=== PATIENT | female | born 1980 | race Caucasian/White ===

== ENCOUNTER 2017-11-21 22:16 | Emergency (ER) | payer MEDICAID ==
[2017-11-21 22:40] VITALS: BP 118/82
[2017-11-22] MEDS ORDERED: IBUPROFEN 600 MG TABLET PO ONE (00:52)
[2017-11-22] MEDS ORDERED: TRAMADOL HCL 50 MG TABLET PO ONE (00:52)
[2017-11-22] MEDS ORDERED: ACETAMINOPHEN 325 MG TABLET PO ONE (00:52)
--- NOTE | 2017-11-22 00:55 | ER Document Report ---
ED General - General Chief Complaint: Toe Injury Stated Complaint: FOOT INJURY Time Seen by Provider: 11/21/17 23:13 Notes: Patient is a 37-year-old female who presents after actually striking her left fifth toe on an ottoman just prior to arrival. She states that immediately after hitting it she developed a severe, throbbing, constant pain to the toe that has been ongoing since that time. She has not tried anything for relief of the pain. Walking or touching the area worsens the pain. No history of similar injury in the past. She has not seen her general doctor regarding today 's concerns. TRAVEL OUTSIDE OF THE [place] IN LAST 30 DAYS: No - Related Data Allergies/Adverse Reactions: No Known Allergies Allergy (Verified 11/22/17 01:13) Past Medical History - General Information source: Patient - Social History Smoking Status: Current Every Day Smoker Chew tobacco use (# tins/day): No Frequency of alcohol use: None Drug Abuse: None Lives with: Spouse/Significant other Family History: Reviewed & Not Pertinent Patient has suicidal ideation: No Patient has homicidal ideation: No Renal/ Medical History: Denies: Hx Peritoneal Dialysis Psychiatric Medical History: Reports: Hx Depression Past Surgical History: Reports: Hx Section - x2, Hx Tubal Ligation Review of Systems - Review of Systems Notes: Constitutional: Negative for fever. Eyes: Negative for visual changes. ENT: Negative for facial injury Cardiovascular: Negative for chest injury. Respiratory: Negative for shortness of breath. Gastrointestinal: Negative for abdominal injury. Genitourinary: Negative for genital injury Musculoskeletal: Positive for left fifth toe injury Skin: Negative for laceration/abrasions. Neurological: Negative for head injury. Physical Exam - Vital signs Vitals: Temp Pulse Resp BP Pulse Ox 98.7 F 79 16 118/82 98 11/21/17 22:39 11/21/17 22:39 11/21/17 22:39 11/21/17 22:39 11/21/17 22:39 Interpretation: Normal Notes: PHYSICAL EXAMINATION: GENERAL: Well-appearing, well-nourished and in no acute distress. HEAD: Atraumatic, normocephalic. EYES: sclera anicteric, conjunctiva are normal. ENT: Moist mucous membranes. NECK: Normal range of motion LUNGS: Normal work of breathing HEART: 2+ radial pulses bilaterally EXTREMITIES: Bruising and swelling of the left pinky toe without obvious deformity. No additional extremity findings. NEUROLOGICAL: No focal neurological deficits. Moves all extremities spontaneously and on command. PSYCH: Normal mood, normal affect. SKIN: Warm, Dry, normal turgor, no rashes or lesions noted. Course - Re-evaluation Re-evalutation: 11/22/17 00:55 Patient presents after striking her toe on ottoman just prior to arrival. X- rays show what appears to be a distal phalanx fracture of the left toe without any additional fractures. I am unable to verify this x-ray read as despite 3 separate calls to our radiology reading group, [facility] , they were unable to read the x-ray despite the x-ray being done and loaded into the system. Patient has no additional trauma on exam. The area has been juana taped in a supportive walking shoe has been provided. No additional concerns or complaints. Orthopedic surgery follow-up as an recommended. At this time will discharge with return precautions and follow-up recommendations. Verbal discharge instructions given a the bedside and opportunity for questions given. Medication warnings reviewed. Patient is in agreement with this plan and has verbalized understanding of return precautions and the need for primary care follow-up in the next 24-72 hours. - Vital Signs Vital signs: Temp Pulse Resp BP Pulse Ox 98.7 F 79 16 118/82 98 11/21/17 22:39 11/21/17 22:39 11/21/17 22:39 11/21/17 22:39 11/21/17 22:39 - Diagnostic Test Radiology reviewed: Image reviewed, Reports reviewed Radiology results interpreted by me: 11/22/17 03:51 Left foot x-ray: Fracture of the distal fifth phalanx Discharge - Discharge Clinical Impression: Fracture of fifth toe, left, closed Qualifiers: Encounter type: initial encounter Qualified Code(s): S92.502A - Displaced unspecified fracture of left lesser toe(s), initial encounter for closed fracture Condition: Good Disposition: HOME, SELF-CARE Additional Instructions: Your seen today for a fracture of your left pinky toe. You have been placed in a walking shoe and your toes have been taped together to help support the fractured area. For your pain: Take ibuprofen 600 mg and acetaminophen 1000 mg every 6 hours together as needed for pain. Applied ice to the area every 2 hours for approximately 20 minutes. Follow with orthopedic surgery at your earliest convenience. Return for worsening pain, inability to walk, or any additional symptoms are worrisome to you. Referrals: NISSA BENTON MD [ACTIVE STAFF] - Follow up as needed
== END 2017-11-22 01:10 | disposition home or self-care (01) ==
LOC: ER 22:16
DX: S92.502A Displaced unspecified fracture of left lesser toe(s), initial encounter for closed fracture (principal); M79.675 Pain in left toe(s); W22.03XA Walked into furniture, initial encounter; Y92.009 Unspecified place in unspecified non-institutional (private) residence as the place of occurrence of the external cause; F17.200 Nicotine dependence, unspecified, uncomplicated
CPT/HCPCS: 99283; 73660; J3490 ×2

== ENCOUNTER 2018-01-22 22:47 | Emergency (ER) | payer MEDICAID ==
[2018-01-22 23:21] VITALS: BP 120/83
[2018-01-23] MEDS ORDERED: PREDNISONE 20 MG TABLET PO ONE (00:37)
--- NOTE | 2018-01-23 00:38 | ER Document Report ---
ED General - General Chief Complaint: Skin Problem Stated Complaint: POSSIBLE ALLERGIC REACTION Time Seen by Provider: 01/23/18 00:31 Notes: Patient is a 37-year-old female presents with complaint of a rash over her extremities. She thinks is related to poison belem. Only on her extremities except for a small patch on her abdomen where she had rubber abdomen. 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 She has been taken Benadryl for itching. No fevers. No other complaints at this time. TRAVEL OUTSIDE OF THE [place] IN LAST 30 DAYS: No - Related Data Allergies/Adverse Reactions: No Known Allergies Allergy (Verified 11/22/17 01:13) Past Medical History - Social History Smoking Status: Never Smoker Frequency of alcohol use: None Drug Abuse: None Family History: Reviewed & Not Pertinent Renal/ Medical History: Denies: Hx Peritoneal Dialysis Psychiatric Medical History: Reports: Hx Depression Past Surgical History: Reports: Hx Section - x2, Hx Tubal Ligation Review of Systems - Review of Systems Notes: My Normal Review Basic REVIEW OF SYSTEMS: CONSTITUTIONAL : Denies fever, chills, or sweats. Denies recent illness. RESPIRATORY: Denies cough, cold, or chest congestion. Denies shortness of breath, difficulty breathing, or wheezing. GASTROINTESTINAL: Denies abdominal pain. Denies nausea, vomiting, or diarrhea. MUSCULOSKELETAL: Denies neck or back pain or joint pain or swelling. SKIN: Linear pattern of papules with occasional blisters that are pruritic over upper and lower extremities. NEUROLOGICAL: Denies altered mental status or loss of consciousness. Denies headache. Denies weakness or paralysis or loss of use of either side. Denies problems with gait or speech. Denies sensory or motor loss. ALL OTHER SYSTEMS REVIEWED AND NEGATIVE. Physical Exam - Vital signs Vitals: Temp Pulse Resp BP Pulse Ox 97.7 F 63 16 120/83 99 01/22/18 23:19 01/22/18 23:19 01/22/18 23:19 01/22/18 23:19 01/22/18 23:19 - Notes Notes: General Appearance: Well nourished, alert, cooperative, no acute distress, no obvious discomfort. Well-appearing. Vitals: reviewed, See vital signs table. Eyes: PERRL, EOMI, Conjuctiva clear Mouth: No decreasd moisture Abdomen: Normal BS, soft, No rigidity, No abdominal tenderness, No guarding, no rebound Extremities: strength 5/5 in all extremities, good pulses in all extremities, no swelling or tenderness in the extremities, no edema. SKIN: Linear pattern of papules with occasional blisters that are pruritic over upper and lower extremities. No spreading erythema. No signs of infection. Neuro: speech clear, oriented x 3, normal affect, responds appropriately to questions. Course - Re-evaluation Re-evalutation: 01/23/18 05:46 Patient is a rash consistent with that of poison belem or poison oak. I have placed her on tapering steroids. I urged her take Benadryl for itching. She has no spreading erythema no signs consistent with secondary infection but I did explain to her if she does have spreading erythema, fevers, abnormal drainage that she should return to ER if this can be a sign of a secondary infection. Patient agrees with plan will be discharged home. Dictation of this chart was performed using voice recognition software; therefore, there may be some unintended grammatical errors. - Vital Signs Vital signs: Temp Pulse Resp BP Pulse Ox 97.7 F 63 16 120/83 99 01/22/18 23:19 01/22/18 23:19 01/22/18 23:19 01/22/18 23:19 01/22/18 23:19 Discharge - Discharge Clinical Impression: Rash Condition: Good Disposition: HOME, SELF-CARE Additional Instructions: Poison Belem Poison belem and poison oak can cause an itchy rash. This is called contact dermatitis. It's an allergy to an oil in the plant's leaves. The oil can be spread from clothing to skin, from pets to humans, or from one spot on the body to another. Washing thoroughly with soap immediately after exposure can prevent the rash. (Clothing should be washed as well.) If the oil is not removed, an itchy rash develops a few days after the exposure. Blisters may develop. Two to three weeks may be required for healing. Generally, treatment consists of: (1) an immediate thorough washing with soap to remove the oil, (2) antihistamines for itching. If the reaction is particularly severe, oral cortisone medicine may be required. If there are oozing areas, these can be soaked in epsom salts or Nakul's solution. Call the doctor if the rash worsens despite treatment, or if signs of infection occur such as spreading redness, red streaks, swollen glands, swelling , or fever. Prescriptions: Prednisone 10 mg PO ASDIR #42 tablet Referrals: GUIDO GARCIA [Primary Care Provider] - Follow up as needed
== END 2018-01-23 00:58 | disposition home or self-care (01) ==
LOC: ER 22:47
DX: R21 Rash and other nonspecific skin eruption (principal); Z91.048 Other nonmedicinal substance allergy status
CPT/HCPCS: 99283; J7512